=== PATIENT | male | born 1960 | race Caucasian/White ===

== ENCOUNTER 2021-03-24 08:08 | Outpatient (CLI) | payer OTHER | END 2021-03-24 08:10 | disposition home or self-care (01) | LOC: NUCLEAR 08:08 | PROVIDERS: ATTEND Internal Medicine Cardiovascular Disease | DX: I10 Essential (primary) hypertension (principal) ==

== ENCOUNTER 2021-03-24 08:21 | Outpatient (CLI) | payer OTHER | END 2021-03-24 08:26 | disposition home or self-care (01) | LOC: LAB 08:21 | PROVIDERS: ATTEND Internal Medicine | DX: U07.1 COVID-19 (principal); B39.1 Chronic pulmonary histoplasmosis capsulati ==